=== PATIENT | female | born 2000 | race Caucasian/White ===

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

== ENCOUNTER 2022-03-06 16:07 | Emergency (ER) | payer SELFPAY ==
[~2022-03-06] VITALS: Ht 162.6 cm; Wt 70.0 kg
[2022-03-06] MEDS ORDERED: ONDANSETRON ODT 4 MG TAB.RAPDIS PO ONE (17:30)
--- NOTE | 2022-03-06 18:14 | PHYS DOC ---
Past History Past Surgical History: No Surgical History (TUTU SINGH APRN) Alcohol Use: None (TUTU SINGH APRN) General Adult EDM: Chief Complaint: VOMITING IN HPI: HPI: Patient is a 22-year-old female presents with nausea and vomiting in . Patient still able to keep down fluids. Does not appear dry. Patient states last menstrual period was 315. Patient is G1, P0. Patient is also reporting some pain with urination. Denies fevers. No abdominal pain,no bleeding. Denies recent illness. Denies taking anything at home for symptoms. Patient has not seen an SIGNAL OPERATOR TECHNICAL as of yet. Patient has an appointment on the of this month. Denies medical history. (TUTU SINGH APRN) Review of Systems: Review of Systems: ROS At least 10 ROS systems have been reviewed and are negative except as documented in the HPI. General: Negative except as outlined in HPI above. Skin: Negative except as outlined in HPI above. HEENT: Negative except as outlined in HPI above. Neck: Negative except as outlined in HPI above. Respiratory: Negative except as outlined in HPI above.. Cardiovascular: Negative except as outlined in HPI above. Abdomen: Negative except as outlined in HPI above. : Negative except as outlined in HPI above. Back/MSK: Negative except as outlined in HPI above. Neuro: Negative except as outlined in HPI above. Psych: Negative except as outlined in HPI above. (TUTU SINGH APRN) Current Medications: Current Meds: Current Medications Medications (Trade) Dose Ordered Sig/Kimberly Start Time Stop Time Status Last Admin Dose Admin Ondansetron HCl (Zofran Odt) 4 mg 1X ONCE 03/06/22 17:30 03/06/22 17:32 DC 03/06/22 17:45 4 MG (TUTU SINGH APRN) Allergies: Allergies: Allergies Coded Allergies Type Severity Reaction Last Updated Verified No Known Drug Allergies 03/06/22 No (TUTU SINGH APRN) Physical Exam: PE: Constitutional: Well developed, well nourished, no acute distress, non-toxic appearance. [] HENT: Normocephalic, atraumatic, bilateral external ears normal, oropharynx moist, no oral exudates, nose normal. [] Eyes: PERRLA, EOMI, conjunctiva normal, no discharge. [] Neck: Normal range of motion, no tenderness, supple, no stridor. [] Cardiovascular:Heart rate regular rhythm, no murmur [] Lungs & Thorax: Bilateral breath sounds clear to auscultation [] Abdomen: Bowel sounds normal, soft, no tenderness Skin: Warm, dry, no erythema, no rash. [] Back: No tenderness, no CVA tenderness. [] Extremities: No tenderness, no cyanosis, no clubbing, ROM intact, no edema. [] Neurologic: Alert and oriented X 3, normal motor function, normal sensory function, no focal deficits noted. [] Psychologic: Affect normal, judgement normal, mood normal. [] (TUTU SINGH APRN) Current Patient Data: Vital Signs: Vital Signs Date Time Temp Pulse Resp B/P (MAP) Pulse Ox O2 Delivery O2 Flow Rate FiO2 03/06/22 17:18 86 22 130/78 (95) 99 Room Air (TUTU SINGH APRN) EKG: EKG: [] (TUTU SINGH APRN) Radiology/Procedures: Radiology/Procedures: [] (TUTU SINGH APRN) Heart Score: C/O Chest Pain: No Risk Factors: Risk Factors: DM, Current or recent (<one month) smoker, HTN, HLP, family history of CAD, obesity. Risk Scores: Score 0 - 3: 2.5% MACE over next 6 weeks - Discharge Home Score 4 - 6: 20.3% MACE over next 6 weeks - Admit for Clinical Observation Score 7 - 10: 72.7% MACE over next 6 weeks - Early Invasive Strategies (TUTU SINGH APRN) Course & Med Decision Making: Course & Med Decision Making Pertinent Labs and Imaging studies reviewed. (See chart for details) [] 22-year-old female presents with nausea and vomiting in . States that she is been vomiting since yesterday. Patient still is able to keep down fluids. LMP, 315. G1, P0. Denies bleeding, abdominal pain. Patient is reporting some dysuria. Patient given Zofran. Work-up consisted of UA and test. P.o. challenge after Zofran. Patient was able to keep fluids down. UA is positive for bacteria. Treating patient with Keflex for asymptomatic bacteremia. Advised patient to call her OB tomorrow to change her appointment to a sooner date. Discussed return precautions. Advised patient to return to the ER if she is unable to keep down any fluids. (TUTU SINGH APRN) Course & Med Decision Making Did not see or evaluate patient. Did not discuss patient with DISABILITY ATTORNEY. Generally agree with DISABILITY ATTORNEY's work-up and disposition per note (EUGENIA CARTER MD) Dragon Disclaimer: Dragon Disclaimer: This electronic medical record was generated, in whole or in part, using a voice recognition dictation system. (TUTU SINGH APRN) Departure Departure: Impression: Primary Impression: Nausea/vomiting in Additional Impression: Asymptomatic bacteriuria during Disposition: HOME / SELF CARE / HOMELESS Condition: STABLE Referrals: MARTA SANABRIA MD (PCP) Patient Instructions: Nausea and Vomiting, [id number] Additional Instructions: You were seen in the emergency room for nausea and vomiting in . You were given Zofran which improved your symptoms. You were able to keep fluids down. Please call your SUPERVISOR DEHYDROGENATION and make a follow-up appointment for sooner than originally scheduled. Return to the emergency room if you have worsening symptoms or concerns such as vaginal bleeding, abdominal pain, unable to keep down fluids. I also checked your urine for infection. EMERGENCY DEPARTMENT GENERAL DISCHARGE INSTRUCTIONS Thank you for coming to [facility] (ED) today and trusting us with you care. We trust that you had a positivie experience in our Emergency Department. If you wish to speak to the department management, you may call the director at [phone]. YOUR FOLLOW UP INSTRUCTIONS ARE FOLLOWS: 1. Do you have a private Doctor? If you do not have a private doctor, please ask for a resource list of physicians or clinics that may be able to assist you with follow up care. 2. The Emergency Physician has interpreted your x-rays. The X-Ray specialist will also review them. If there is a change in the findings, you will be notified in 48 hours when at all possible. 3. A lab test or culture has been done, your results will be reviewed and you will be notified if you need a change in treatment. ADDITIONAL INSTRUCTIONS AND INFORMATION: 1. Your care today has been supervised by a physician who is specially trained in emergency care. Many problems require more than one evaluation for a complete diagnosis and treatment. We recommend that you schedule your follow up appointment as recommended to ensure complete treatment of you illness or injury. If you are unable to obtain follow up care and continue to have a problem, or if your condition worsens, we recommend that you return to the ED. 2. We are not able to safely determine your condition over the phone nor are we able to give sound medical advice over the phone. For these safety reasons, if you call for medical advice we will ask you to come to the ED for further evaluation. 3. If you have any questions regarding these discharge instructions please call the ED at [phone]. SAFETY INFORMATION: In the interest of safety, wellness, and injury prevention; we encourage you to wear your sealbelt, if you smoke; quite smoking, and we encourage family to use a protective helmet for bicycling and other sporting events that present an increased risk for head injury. IF YOUR SYMPTOMS WORSEN OR NEW SYMPTOMS DEVELOP, OR YOU HAVE CONCERNS ABOUT YOUR CONDITION; OR IF YOUR CONDITION WORSENS WHILE YOU ARE WAITING FOR YOUR FOLLOW UP APPOINTMENT; EITHER CONTACT YOUR PRIMARY CARE DOCTOR, THE PHYSICIAN WHOSE NAME AND NUMBER YOU WERE GIVEN, OR RETURN TO THE ED IMMEDIATELY. Scripts Cephalexin (CEPHALEXIN) 500 Mg Tablet 1 TAB PO BID for uti for 7 Days, #14 TAB Prov: TUTU SINGH APRN 03/06/22 TUTU SINGH APRN March 06, 2022 18:14 EUGENIA CARTER MD March 06, 2022 23:09
[2022-03-06 19:18] LABS: COLOR,URINE YELLOW
[2022-03-06 19:19] LABS: BACTERIA,URINE FEW /HPF (0-FEW); CLARITY,URINE CLEAR; GLUCOSE,URINE NEG (NEG); NITRITE,URINE NEG (NEG); RBC,URINE 0 /HPF (0-2); SQUAMOUS EPITHELIAL CELL,UR MOD /LPF; UROBILINOGEN,URINE 0.2 mg/dL (0.2 mg/dL)
[2022-03-06] MEDS ORDERED: CEPH500T PO (19:39)
[2022-03-06 19:53] VITALS: BP 127/64
== END 2022-03-06 19:54 | disposition home or self-care (01) ==
LOC: ER 16:07
DX: O21.9 Vomiting of pregnancy, unspecified (principal); O23.90 Unspecified genitourinary tract infection in pregnancy, unspecified trimester; Z3A.01 Less than 8 weeks gestation of pregnancy
CPT/HCPCS: 81001; 99283; Q0162